=== PATIENT | female | born 1985 | race Caucasian/White ===

== ENCOUNTER 2016-11-07 16:40 | Emergency (ER) | payer OTHER ==
[2016-11-07] MEDS ORDERED: OPTIRAY 350 50 ML HMH IV ONE (16:41)
[2016-11-07] MEDS ORDERED: KETOROLAC 30 MG/ML VIAL ONE (17:48)
== END 2016-11-07 19:35 | disposition home or self-care (01) ==
LOC: FASTR 16:40
DX: R22.0 Localized swelling, mass and lump, head (principal); Z79.899 Other long term (current) drug therapy; F17.210 Nicotine dependence, cigarettes, uncomplicated; I10 Essential (primary) hypertension; K21.9 Gastro-esophageal reflux disease without esophagitis; F32.9 Major depressive disorder, single episode, unspecified; G40.909 Epilepsy, unspecified, not intractable, without status epilepticus
CPT/HCPCS: 70487; 96374